=== PATIENT | male | born 1985 | race African-American/Black ===

== ENCOUNTER 2016-11-18 15:13 | Emergency (ER) | payer SELFPAY ==
[2016-11-18 15:16] VITALS: BP 174/88; PULSE 90; RESP 16; TEMP 98.4; O2SAT 99
--- NOTE | 2016-11-18 15:56 | PD ---
HPI Chief Complaint: Pain: Acute or Chronic Time Seen by Provider: 15:27 Travel History International Travel<30 days: No Contact w/Intl Traveler<30days: No Traveled to known affect area: No History of Present Illness HPI So 31 male presents emergent arm flexion pain is been ongoing for several weeks. Is been to another ER for this. He reports he's had a x-ray, and urine test. Is worse when he walks. No history of previous similar symptoms. No other complaints. History Past Medical History Narrative Medical Asthma Social History Tobacco Use: No Allergies-Medications (Allergen,Severity, Reaction): Coded Allergies: No Known Allergies (Unverified , 11/18/16) Review of Systems Except as stated in HPI: all other systems reviewed are Neg Physical Exam Narrative GENERAL: Well-appearing 31 year-old woman, no acute distress. SKIN: Warm and dry. CARDIOVASCULAR: Warm and well perfused. RESPIRATORY: Normal rate and effort. MUSCULOSKELETAL: Normal appearance of both legs. There is no swelling edema or deformity. Good color. Good pulses. Good capillary refill. There is no tenderness or tightness and the compartments. No calf tenderness. NEUROLOGICAL: Awake and alert. No gross deficits. Data Data Last Documented VS Vital Signs Date Time Temp Pulse Resp B/P (MAP) Pulse Ox O2 Delivery O2 Flow Rate FiO2 11/18/16 15:16 98.4 90 16 174/88 (116) 99 MDM Medical Decision Making Medical Screen Exam Complete: Yes Emergency Medical Condition: No Differential Diagnosis Fishman splints, vascular insufficiency, tumor, stress fracture, other Narrative Course Medical screening exam performed. Patient has no evidence of acute emergency medical condition. I recommended that he follow-up with a primary care physician. A have financial counseling speak to him. They will help him to arrange an appointment at [facility]. Patient is RED had x-ray imaging that was negative. Disposition: [facility]-ED USE ONLY Neil Wing MD Nov 18, 2016 15:56
== END 2016-11-18 15:55 | disposition left against medical advice (07) ==
LOC: NEPD 15:13
DX: M79.603 Pain in arm, unspecified (principal); J45.909 Unspecified asthma, uncomplicated
CPT/HCPCS: 99281